=== PATIENT | female | born 1965 | race Caucasian/White ===

== ENCOUNTER 2016-06-23 21:35 | Emergency (ER) | payer OTHER ==
--- NOTE | 2016-06-23 23:28 | DIAGNOSTIC IMAGING REPORT ---
PROCEDURE: XR CHEST 2 VIEW INDICATION: CHEST PAIN TECHNIQUE: PA and lateral views. COMPARISON: Compared to chest x-ray and 10/06/2012. FINDINGS: Allowing for overlying wires and electrodes, lungs are clear. Heart and mediastinum are normal. Thorax is normal. IMPRESSION: 1. Negative chest.
--- NOTE | 2016-06-24 02:24 | ED CLINICAL REPORT ---
Clinical Report - Physicians/Mid Levels [facility] [address] [place] [address] 06/23/2016 21:38 Patient: ROXY JEONG Arrived- By private vehicle. Historian- patient. HISTORY OF PRESENT ILLNESS Chief Complaint: CHEST PAIN. It is described as pressure and sharp and it is described as located in the right chest and left chest area and radiating to the left shoulder. This started past several weeks and is still present (staying the same). It was abrupt in onset and has been constant but is not gone now. Onset during coughing. At its maximum, severity described as severe. When seen in the E.D., severity described as severe. Modifying factors- worsened by cough. Not relieved by anything. No nausea, vomiting, difficulty breathing or diaphoresis. (has had a cough for > 6 months. states it is dry. no other symptoms. reports no hx of eda inhibitors. reports also generalized body aches and fatigue. no headaches, blurry vision, numbness, weakness, or tingling). Similar symptoms previously: None. Recent medical care: Not recently seen/assessed. REVIEW OF SYSTEMS No fever, chills, calf pain or skin rash. All systems otherwise negative, except as recorded above. PAST HISTORY See nurses notes. Denies the following risk factors for DVT/PE - history of DVT and pulmonary embolism, recent surgery, recent NE and congestive heart failure. Denies the following risk factors for DVT/PE - cancer, clotting disorder, estrogens, obesity and immobility. Denies the following risk factors for DVT/PE - advanced in age and vena cava filter. SOCIAL HISTORY Never smoker. No alcohol use or drug use. No recent travel. Is a local resident. FAMILY HISTORY Negative. ADDITIONAL NOTES The nursing notes have been reviewed. PHYSICAL EXAM Vital Signs: 06/23/2016 21:58 BP: 125/75. HR: 100. RR: 14. O2 saturation: 98%. Temp: 98.3 F. Blood pressure normal. Oxygen saturation normal. Appearance: Alert. Oriented X3. No acute distress. Eyes: Pupils equal, round and reactive to light. Eyes normal inspection. ENT: Ears normal. Nose normal. Pharynx normal. Neck: Normal inspection. Neck supple. No JVD. CVS: Normal heart rate and rhythm. Heart sounds normal. Pulses normal. No decreased pulses. Respiratory: No respiratory distress. Breath sounds normal. Chest nontender. No rales, rhonchi or wheezes. Abdomen: Soft and nontender. Bowel sounds normal. No mass. Back: Normal external inspection. Skin: Skin warm and dry. Normal skin color. No rash. Normal skin turgor. Extremities: Extremities exhibit normal ROM. No lower extremity edema. LABS, X-RAYS, AND EKG EKG: Normal sinus rhythm. Rate: 89. Normal P waves. Normal SANDRO. Normal QRS complex. Normal axis. Normal ST and T waves, QT and QTc. No ST elevation. poor R wave progression. Normal sinus. The study has been interpreted contemporaneously. The study has been independently viewed by me. The EKG appears to be a good tracing. Chest X-ray: (PROCEDURE: XR CHEST 2 VIEW INDICATION: CHEST PAIN TECHNIQUE: PA and lateral views. COMPARISON: Compared to chest x-ray and 10/06/2012. FINDINGS: Allowing for overlying wires and electrodes, lungs are clear. Heart and mediastinum are normal. Thorax is normal. IMPRESSION: 1. Negative chest.). Views: PA and lateral. The X-rays were independently viewed by me and interpreted by the radiologist. The X-rays were discussed with the radiologist (via pacs). Laboratory Tests: Urine: (TRACY: 06/24/2016 00:40) ( Mscvd 06/24/2016 00:54) Final results Test Result Flag Units (Reference) URINE NEGATIVE [id number]: (TRACY: 06/24/2016 00:40) ( MsgRcvd 06/24/2016 01:04) Final results Test Result Flag Units (Reference) D-DIMER QUANTITATIVE < 0.27 L ug/mLFEU (0.27-0.52) The primary value of this quantitative assay relates toits negative predictive value (i.e. exclusion) of pulmonaryembolism/deep vein thrombosis/DIC.Elevated levels of d-dimer may also occur with:, age, cancer, inflammation, liver disease,post-op, infection, hematoma, coronary disease, peripheralarteriopathy, bleeding disorders and thrombolytic treatment.Results should be correlated with other clinical andradiological data.Testing Methodology: Latex Immunoassay Urine Drug Screen: (TRACY: 06/24/2016 00:40) ( MsgRcvd 06/24/2016 01:12) Final results Test Result Flag Units (Reference) AMPHETAMINE/METHAMPHETAMINE NEGATIVE (NEGATIVE) BARBITURATE NEGATIVE (NEGATIVE) BENZODIAZEPINE NEGATIVE (NEGATIVE) CANNABINOID NEGATIVE (NEGATIVE) COCAINE NEGATIVE (NEGATIVE) ECSTASY POSITIVE H (NEGATIVE) METHADONE NEGATIVE (NEGATIVE) OPIATE POSITIVE H (NEGATIVE) The urine drug screen is a qualitative screening test fordrug overdose and abuse. All screen results should beconsidered as presumptive.Drugs screened for are as follows:BenzodiazepinesCocaineAmphetamines/MetamphetaminesTHC (Tetrahydrocannabinol)OpiatesBarbituratesEcstasyMethadonePositive results are unconfirmed. For confirmation, notifythe lab for the specimen to be sent to the reference lab.All confirmations must be performed by a differentmethodology.The ingestion of natural herbal and plant productscontaining Ephedra/Ephedra metabolites can produce in urineone or more substances capable of cross reacting withamphetamine/methamphetamine immunoassays. These testsprovide a preliminary result only. A more specificalternative chemical method must be used to obtain aconfirmed analytical result. CBC w Diff: (TRACY: 06/23/2016 22:40) ( MsgRcvd 06/23/2016 23:06) Final results Test Result Flag Units (Reference) WHITE BLOOD COUNT 6.5 K/uL (4.5-11.5) RED BLOOD COUNT 5.48 H M/uL (4.00-5.20) HEMOGLOBIN 11.5 L gm/dL (12.0-16.0) HEMATOCRIT 36.6 % (36.0-46.0) MEAN CELL VOLUME 67 L fL (80-100) MEAN CORPUSCULAR HGB 21 L pg (26-34) MEAN CORPUSCULAR HGB CONC 31 g/dL (31-37) RED CELL DISTRIBUTION WIDTH 13.9 % (11.6-14.8) PLATELET COUNT 200 K/uL (150-400) LYMPH % 26.1 % (25-40) MONO % 3.2 % (3-14) GRANULOCYTE % 70.7 (53-90) TSH: (TRACY: 06/23/2016 23:30) ( [facility] [place] 06/24/2016 00:15) Final results Test Result Flag Units (Reference) THYROID STIMULATING HORMONE 1.187 uIU/mL (0.34-3.74) Troponin-I: (TRACY: 06/23/2016 23:30) ( [facility] [place] 06/24/2016 00:15) Final results Test Result Flag Units (Reference) TROPONIN I <0.05 ng/mL (0.00-1.5) TROPONIN REFERENCE RANGE:<0.1 NEGATIVE0.1-1.5 INDETERMINANT>1.5 POSITIVE CMP: (TRACY: 06/23/2016 23:30) ( [facility] [place] 06/24/2016 00:03) Final results Test Result Flag Units (Reference) GLUCOSE 87 mg/dL (70-110) BUN 12 mg/dL (7-18) CREATININE 0.8 mg/dL (0.6-1.3) Estimated GFR >60 mL/min Estimated GFR- >60 mL/min Note: Persistent reduction over 3 months in eGFR<60 mL/min/1.73 m2 defines CKD. Patients with eGFR values>=60 mL/min/1.73 m2 may also have CKD if evidence ofpersistent proteinuria. Additional information may be foundat www.[email or web address].org. SODIUM 138 mmol/L (136-145) POTASSIUM 3.5 mmol/L (3.5-5.1) CHLORIDE 102 mmol/L (98-107) CARBON DIOXIDE 25 mmol/L (21-32) CALCIUM 8.4 L mg/dL (8.5-10.1) TOTAL PROTEIN 7.0 g/dL (6.4-8.2) ALBUMIN 3.7 g/dL (3.3-5.0) BILIRUBIN, TOTAL 0.3 mg/dL (0.0-1.0) ALKALINE PHOSPHATASE 59 U/L (46-116) AST (SGOT) 18 U/L (15-37) ALT (SGPT) 26 U/L (12-78) . PROGRESS AND PROCEDURES Course of Care: The patient is a pleasant 50-year-old female presenting for evaluation of left-sided chest pain. At this time differential diagnosis includes pneumonia, pulmonary embolus, acute myocardial infarction. Chest pain appears to be atypical in nature. Patient appears nontoxic. I had explained to patient workup here in the emergency department and plan of care. Patient is agreeable to the treatment plan. workup does not show any acute abnormalities. Troponin is negative. D-dimer is negative. EKG does not show any acute amount is. Chest x-ray does not show any signs of pneumothorax, pneumonia, or concerning findings such as widening mediastinum or apical capping. Because of the patient's negative d-dimer, did not fill patient has thoracic aorta dissection or other more sinister causes for the chest pain. chest pain appears to be atypical in nature. With negative workup, feel patient is extremely low risk for having adverse outcomes and can follow up with the scheduledplanned digital associate media director evaluationas an outpatient. I discussed the patient workup, diagnosis, home care, follow-up, and return precautions. All questions answered. The patient expressed understanding of these instructions and was agreeable to them. Disposition: Discharged. Condition: good. CLINICAL IMPRESSION 06/24/2016 00:00 BP: 104/66. HR: 83. RR: 12. O2 saturation: 97%. Pain level now: 9/10. Chronic cough Blood pressure normal. Oxygen saturation normal. Atypical chest pain .12 lead EKG performed. (acute bilateral). INSTRUCTIONS Warnings: GENERAL WARNINGS: Return or contact your physician immediately if your condition worsens or changes unexpectedly, if not improving as expected, or if other problems arise. SPECIFICALLY, return if you develop chest, neck, jaw, shoulder, arm, or back pain, difficulty breathing, a fluttering sensation in your chest, lightheadedness, fainting, excessive fatigue, or sudden sweating. Your Current Medications: CONTINUE TAKING THE FOLLOWING MEDICATIONS: Ambien Oral : 10 mg, prn. LORazepam Oral : 1.5 mg daily. Methocarbamol Oral. NexIUM Oral : 80 mg daily. Ranitidine HCl Oral : at bedtime. Tessalon Perles Oral. TraZODone HCl Oral : 350 mg at bedtime. Tussionex Oral. Follow-up: Return to the emergency department as needed. Follow up with your doctor in three days. Reason for referral: recheck today's concerns. Summary of care provided to patient via paper. Follow up with doctor Your digital associate media director or covering doctor in three days. Reason for referral: recheck today's concerns . Summary of care provided to patient via paper. Screening today revealed the patient's blood pressure to be in the normal range. The patient should follow up with a primary care provider for blood pressure management. Understanding of the discharge instructions verbalized by patient. (Electronically signed by Mati Garrison Dr. 06/27/2016 12:11)
--- NOTE | 2016-06-24 02:24 | ED NURSING NOTES ---
Clinical Report - Nurses [place] [address] [place] [address] 06/23/2016 21:38 Patient: ROXY JEONG TRIAGE Triage time 21:45 Jun 23 2016. Acuity: LEVEL 2. Chief Complaint: CHEST PAIN. 21:58 06/23/16. Alert. No acute distress. SEPSIS SCREEN: Sepsis Screen. Negative (no infection suspected/documented). OZ COMA SCORE: Oz Coma Scale: 15- eyes open spontaneously (4); best verbal response- oriented x 4 (5); best motor response- obeys commands (6). --21:58 Bambi Lambert 21:58 06/23/16. BP: 125/75. HR: 100. RR: 14. O2 saturation: 98%. Temp: 98.3 F. Pain level now 9/10. --21:58 Bambi Lambert. Weight: 76.2 kg stated. Height/Length: 66 inches Per Patient. BMI: 27.1. --21:58 Bambi Lambert. Medications TraZODone HCl Oral 350 mg, at bedtime. --21:53 Bambi Lambert Ambien Oral 10 mg, as needed. --21:53 Bambi Lambert LORazepam Oral 1.5 mg, daily. --21:54 Bambi Lambert NexIUM Oral 80 mg, daily. --21:54 Bambi Lambert Ranitidine HCl Oral, at bedtime. --21:54 Bambi Lambert Tessalon Perles Oral. --21:54 Bambi Lambert Tussionex Oral. --21:55 Bambi Lambert Methocarbamol Oral. --21:55 Bambi Lambert. Medication/allergy information source: the patient. --21:58 Bambi Lambert. Allergies Penicillin. --21:55 Bambi Lambert Dilaudid. --21:56 Bambi Lambert Effexor. --21:56 Bambi Lambert Benadryl. (restless legs, chattering) --21:56 Bambi Lambert Tetracycline. --21:56 Bambi Lambert. History Arrived by private vehicle. Historian: patient. Accompanied by spouse. Primary physician (Marga). Onset. (Past 2-3 days). ( Pt reports "rib" pain on the left lower side. States that it is worsened by breathing and moving. Pt reports that she has a chronic cough that has gotten worse recently. Reports that she has been working with child life specialist for sinus infections. Pt reports that she is going to see a electromechanical equipment assembler. Has had rapid weight gain.). She has had a subjective fever, difficulty breathing, nausea, vomiting and a cough. PAST MEDICAL HX: No history of diabetes mellitus, hypertension, heart disease or lung disease. Immunizations: up-to-date. SOCIAL HX: Never smoker. No alcohol use or drug use. FALL RISK ASSESSMENT: Fall risk assessment completed. No fall risk identified. NUTRITIONAL RISK ASSESSMENT: The nutritional risk assessment revealed no deficiencies. FUNCTIONAL ASSESSMENT: Functional assessment: no impairments noted. LEARNING NEEDS ASSESSMENT: The learning needs assessment revealed no barriers. SKIN INTEGRITY ASSESSMENT: Skin integrity risk assessment completed. No skin integrity risk identified. --21:58 Bambi Lambert. PROBLEMS: Emeterio Anomaly. Anemia. Tricuspid valve regurgitation. Chronic pain. Migraine Headache. Chest Pain. TIA - Transient Ischemic Attack. Calification R arm. Bone growths. Fibromyalgia. Thalassemia. --21:56 Bambi Lambert Gastroesophageal Reflux Disease. --22:09 Bambi Lambert. ADDITIONAL SURGERIES: Back Surgery. Bone tumor removal base of skull. L foot. L wrist. R ankle repair. R foot. R toe fusion. Sinus Surgery. --21:56 Bambi Lambert. Assessment The patient states feels the same. --21:58 Bambi Lambert. Interventions ID band on patient. --21:58 Bambi Lambert. PHYSICAL ASSESSMENT 21:58 06/23/16. Ambulatory to room. Patient gowned. GENERAL / NEURO / PSYCH: Alert. Oriented X 4. Appears in no acute distress. HEENT: Mucous membranes are pink. RESPIRATORY: Respirations not labored. Chest nontender. CVS: Normal sinus rhythm noted. Pulses within normal limits. Capillary refill less than 2 seconds. GI / : Abdomen soft and nontender. EXTREMITIES: No lower extremity edema. SKIN: Skin is warm and dry. Normal skin turgor. Skin is non-tender. --21:58 Bambi Lambert. NURSING PROGRESS NOTES 21:59 06/23/16. The plan of care for this patient has been created. radiation monitor, pulse oximeter and NIBP monitor placed on patient; monitor alarms on. Patient gowned. Head of bed elevated. Reassurance given to the patient. Two patient identifiers checked. Call light placed in reach. Side rails up x 1. Bed placed in lowest position. Brakes of bed on. Patient ready for evaluation- chart flagged and ED physician and PA notified. --21:59 Bambi Lambert 22:06 06/23/2016 One (1) unsuccessful IV access attempt including the right wrist. Applied pressure dressing. --22:06 Bambi Lambert EKG time: (2210 PM). EKG was ordered, performed by a tech and shown to the ED physician. --22:13 Nicole Shirley 22:34 06/23/2016 Site #1 started via IV in the right upper arm with an 22g angiocath, with aseptic technique; one attempt. Saline lock flushed with 10 mL saline (only able to collect a pediatric pink tube). --22:49 Sesar López, RVernon 23:00 06/23/16. BP: 110/65 (regular adult cuff) taken on the left arm, via an automated monitor, while lying. HR: 85. RR: 12. O2 saturation: 97%. Temp: 98 F (oral). Pain level now: 02/13. --23:19 Kia Carpenter, R.N. radiation monitor, pulse oximeter and NIBP monitor placed on patient. Patient gowned. Reassurance given. The patient is resting quietly and has had no adverse reaction. Overall patient status is improved- she states feels the same. HEENT: The patient reports headache. RESPIRATORY: No respiratory distress present. No decreased breath sounds or crackles. CVS: The patient reports chest pain. SKIN: Skin color normal. Call light placed in reach. Side rails up x 2. Bed placed in lowest position. --23:19 Kia Carpenter R.N. 00:09 06/24/2016 Toradol IVP 30 mg given over 30 second(s) via site #1. Allergies verified and confirmed 5 rights. IV patency established. IV site checked: no pain, redness, or swelling. IV flushed thoroughly pre- and post-medication administration. IVP given by RN. --00:09 Kia Carpenter R.N. 00:43 06/24/2016 Toradol IVP Response: no adverse reaction pain is worsening. Symptoms are the same. ED physician notified. --00:44 Kia Carpenter R.N. 00:50 06/24/2016 Morphine IVP 4 mg given over 1 minute(s) via site #1. Sedative warning given to the patient and patient's family. IV patency established. IV site checked: no pain, redness, or swelling. IV flushed thoroughly pre- and post-medication administration. IVP given by RN. --00:51 Kia Carpenter R.N. 00:00 06/24/16. BP: 104/66. HR: 83. RR: 12. O2 saturation: 97% on room air. Pain level now: 01/14. --00:53 Kia Carpenter R.N. Cardiac rhythm: normal sinus rhythm. radiation monitor, pulse oximeter and NIBP monitor placed on patient. Reassurance given. Reassessment after intervention. She has had no adverse reaction. GENERAL / NEURO / PSYCH: The patient reports anxiety. CVS: The patient reports left-sided and central chest pain that is described as sharp and radiating to the left arm. Two patient identifiers checked. Call light placed in reach. Side rails up x 2. Bed placed in lowest position. Brakes of bed on. --00:53 Kia Carpenter R.N. 01:00 06/24/16. BP: 128/77 (regular adult cuff) taken on the left arm, via an automated monitor, while lying. HR: 79. RR: 13 (regular and unlabored). O2 saturation: 96%. Temp: 97.7 F (oral). Pain level now: 12/14. --01:56 Kia Carpenter R.N. late entry - 0100 AM. Cardiac rhythm: normal sinus rhythm. radiation monitor, pulse oximeter and NIBP monitor placed on patient. Reassurance given. Reassessment after medication administered. She is calm and has had no adverse reaction. Overall patient status is the same- she states feels better. ( pt states that her pain has gotten a "bit better" left side breast area radiating to shoulder blade area. Pt does state feeling nausea/ H/A). HEENT: The patient reports headache. CVS: Normal sinus rhythm noted. GI / : The patient reports nausea. Call light placed in reach. Side rails up x 1. Bed placed in lowest position. Brakes of bed on. --01:56 Kia Carpenter R.N. 01:56 06/24/2016 Morphine IVP Response: no adverse reaction pain is improving. Symptoms have improved the patient feels better. --01:56 Kia Carpenter R.N. 02:22. The patient is calm and resting quietly. RESPIRATORY: No respiratory distress. SKIN: Skin is warm and dry. Skin color within normal limits. --02:28 Sesar Chowdhury R.N. DISPOSITION / DISCHARGE 02:21 06/24/2016 Site #1 removed upon discharge. Catheter intact. Bandage applied. --02:27 Sesar Chowdhury R.N. Departure time: 02:26. Condition at departure: stable. No learning barriers present. Discharge instructions provided and reviewed with the patient and spouse. Patient and spouse verbalized understanding. Written instructions provided in Bengali. The patient was discharged home and accompanied by spouse. She left the Emergency Department ambulatory and via private vehicle. Spouse driving. FALL RISK ASSESSMENT: Fall risk assessment completed. No fall risk identified. --02:27 Sesar Chowdhury R.N. 02:12 06/24/16. BP: 130/72. HR: 82. RR: 16. O2 saturation: 97%. Pain level now: 12/14. --02:27 Sesar Chowdhury R.N. Locked/Released at 06/24/2016 2:56 by Sesar Chowdhury R.N.
--- NOTE | 2016-06-24 02:24 | ED CLINICAL REPORT ---
Clinical Report - Physicians/Mid Levels Formerly [facility] [address] [place] [address] 06/23/2016 21:38 Patient: ROXY JEONG Arrived- By private vehicle. Historian- patient. HISTORY OF PRESENT ILLNESS Chief Complaint: CHEST PAIN. It is described as pressure and sharp and it is described as located in the right chest and left chest area and radiating to the left shoulder. This started past several weeks and is still present (staying the same). It was abrupt in onset and has been constant but is not gone now. Onset during coughing. At its maximum, severity described as severe. When seen in the E.D., severity described as severe. Modifying factors- worsened by cough. Not relieved by anything. No nausea, vomiting, difficulty breathing or diaphoresis. (has had a cough for > 6 months. states it is dry. no other symptoms. reports no hx of eda inhibitors. reports also generalized body aches and fatigue. no headaches, blurry vision, numbness, weakness, or tingling). Similar symptoms previously: None. Recent medical care: Not recently seen/assessed. REVIEW OF SYSTEMS No fever, chills, calf pain or skin rash. All systems otherwise negative, except as recorded above. PAST HISTORY See nurses notes. Denies the following risk factors for DVT/PE - history of DVT and pulmonary embolism, recent surgery, recent IA and congestive heart failure. Denies the following risk factors for DVT/PE - cancer, clotting disorder, estrogens, obesity and immobility. Denies the following risk factors for DVT/PE - advanced in age and vena cava filter. SOCIAL HISTORY Never smoker. No alcohol use or drug use. No recent travel. Is a local resident. FAMILY HISTORY Negative. ADDITIONAL NOTES The nursing notes have been reviewed. PHYSICAL EXAM Vital Signs: 06/23/2016 21:58 BP: 125/75. HR: 100. RR: 14. O2 saturation: 98%. Temp: 98.3 F. Blood pressure normal. Oxygen saturation normal. Appearance: Alert. Oriented X3. No acute distress. Eyes: Pupils equal, round and reactive to light. Eyes normal inspection. ENT: Ears normal. Nose normal. Pharynx normal. Neck: Normal inspection. Neck supple. No JVD. CVS: Normal heart rate and rhythm. Heart sounds normal. Pulses normal. No decreased pulses. Respiratory: No respiratory distress. Breath sounds normal. Chest nontender. No rales, rhonchi or wheezes. Abdomen: Soft and nontender. Bowel sounds normal. No mass. Back: Normal external inspection. Skin: Skin warm and dry. Normal skin color. No rash. Normal skin turgor. Extremities: Extremities exhibit normal ROM. No lower extremity edema. LABS, X-RAYS, AND EKG EKG: Normal sinus rhythm. Rate: 89. Normal P waves. Normal SANDRO. Normal QRS complex. Normal axis. Normal ST and T waves, QT and QTc. No ST elevation. poor R wave progression. Normal sinus. The study has been interpreted contemporaneously. The study has been independently viewed by me. The EKG appears to be a good tracing. Chest X-ray: (PROCEDURE: XR CHEST 2 VIEW INDICATION: CHEST PAIN TECHNIQUE: PA and lateral views. COMPARISON: Compared to chest x-ray and 10/06/2012. FINDINGS: Allowing for overlying wires and electrodes, lungs are clear. Heart and mediastinum are normal. Thorax is normal. IMPRESSION: 1. Negative chest.). Views: PA and lateral. The X-rays were independently viewed by me and interpreted by the radiologist. The X-rays were discussed with the radiologist (via pacs). Laboratory Tests: Urine: (TRACY: 06/24/2016 00:40) ( Mscvd 06/24/2016 00:54) Final results Test Result Flag Units (Reference) URINE NEGATIVE [id number]: (TRACY: 06/24/2016 00:40) ( MsgRcvd 06/24/2016 01:04) Final results Test Result Flag Units (Reference) D-DIMER QUANTITATIVE < 0.27 L ug/mLFEU (0.27-0.52) The primary value of this quantitative assay relates toits negative predictive value (i.e. exclusion) of pulmonaryembolism/deep vein thrombosis/DIC.Elevated levels of d-dimer may also occur with:, age, cancer, inflammation, liver disease,post-op, infection, hematoma, coronary disease, peripheralarteriopathy, bleeding disorders and thrombolytic treatment.Results should be correlated with other clinical andradiological data.Testing Methodology: Latex Immunoassay Urine Drug Screen: (TRACY: 06/24/2016 00:40) ( MsgRcvd 06/24/2016 01:12) Final results Test Result Flag Units (Reference) AMPHETAMINE/METHAMPHETAMINE NEGATIVE (NEGATIVE) BARBITURATE NEGATIVE (NEGATIVE) BENZODIAZEPINE NEGATIVE (NEGATIVE) CANNABINOID NEGATIVE (NEGATIVE) COCAINE NEGATIVE (NEGATIVE) ECSTASY POSITIVE H (NEGATIVE) METHADONE NEGATIVE (NEGATIVE) OPIATE POSITIVE H (NEGATIVE) The urine drug screen is a qualitative screening test fordrug overdose and abuse. All screen results should beconsidered as presumptive.Drugs screened for are as follows:BenzodiazepinesCocaineAmphetamines/MetamphetaminesTHC (Tetrahydrocannabinol)OpiatesBarbituratesEcstasyMethadonePositive results are unconfirmed. For confirmation, notifythe lab for the specimen to be sent to the reference lab.All confirmations must be performed by a differentmethodology.The ingestion of natural herbal and plant productscontaining Ephedra/Ephedra metabolites can produce in urineone or more substances capable of cross reacting withamphetamine/methamphetamine immunoassays. These testsprovide a preliminary result only. A more specificalternative chemical method must be used to obtain aconfirmed analytical result. CBC w Diff: (TRACY: 06/23/2016 22:40) ( MsgRcvd 06/23/2016 23:06) Final results Test Result Flag Units (Reference) WHITE BLOOD COUNT 6.5 K/uL (4.5-11.5) RED BLOOD COUNT 5.48 H M/uL (4.00-5.20) HEMOGLOBIN 11.5 L gm/dL (12.0-16.0) HEMATOCRIT 36.6 % (36.0-46.0) MEAN CELL VOLUME 67 L fL (80-100) MEAN CORPUSCULAR HGB 21 L pg (26-34) MEAN CORPUSCULAR HGB CONC 31 g/dL (31-37) RED CELL DISTRIBUTION WIDTH 13.9 % (11.6-14.8) PLATELET COUNT 200 K/uL (150-400) LYMPH % 26.1 % (25-40) MONO % 3.2 % (3-14) GRANULOCYTE % 70.7 (53-90) TSH: (TRACY: 06/23/2016 23:30) ( [facility] 06/24/2016 00:15) Final results Test Result Flag Units (Reference) THYROID STIMULATING HORMONE 1.187 uIU/mL (0.34-3.74) Troponin-I: (TRACY: 06/23/2016 23:30) ( [facility] 06/24/2016 00:15) Final results Test Result Flag Units (Reference) TROPONIN I <0.05 ng/mL (0.00-1.5) TROPONIN REFERENCE RANGE:<0.1 NEGATIVE0.1-1.5 INDETERMINANT>1.5 POSITIVE CMP: (TRACY: 06/23/2016 23:30) ( [facility] 06/24/2016 00:03) Final results Test Result Flag Units (Reference) GLUCOSE 87 mg/dL (70-110) BUN 12 mg/dL (7-18) CREATININE 0.8 mg/dL (0.6-1.3) Estimated GFR >60 mL/min Estimated GFR- >60 mL/min Note: Persistent reduction over 3 months in eGFR<60 mL/min/1.73 m2 defines CKD. Patients with eGFR values>=60 mL/min/1.73 m2 may also have CKD if evidence ofpersistent proteinuria. Additional information may be foundat www.kidney.org. SODIUM 138 mmol/L (136-145) POTASSIUM 3.5 mmol/L (3.5-5.1) CHLORIDE 102 mmol/L (98-107) CARBON DIOXIDE 25 mmol/L (21-32) CALCIUM 8.4 L mg/dL (8.5-10.1) TOTAL PROTEIN 7.0 g/dL (6.4-8.2) ALBUMIN 3.7 g/dL (3.3-5.0) BILIRUBIN, TOTAL 0.3 mg/dL (0.0-1.0) ALKALINE PHOSPHATASE 59 U/L (46-116) AST (SGOT) 18 U/L (15-37) ALT (SGPT) 26 U/L (12-78) . PROGRESS AND PROCEDURES Course of Care: The patient is a pleasant 50-year-old female presenting for evaluation of left-sided chest pain. At this time differential diagnosis includes pneumonia, pulmonary embolus, acute myocardial infarction. Chest pain appears to be atypical in nature. Patient appears nontoxic. I had explained to patient workup here in the emergency department and plan of care. Patient is agreeable to the treatment plan. workup does not show any acute abnormalities. Troponin is negative. D-dimer is negative. EKG does not show any acute amount is. Chest x-ray does not show any signs of pneumothorax, pneumonia, or concerning findings such as widening mediastinum or apical capping. Because of the patient's negative d-dimer, did not fill patient has thoracic aorta dissection or other more sinister causes for the chest pain. chest pain appears to be atypical in nature. With negative workup, feel patient is extremely low risk for having adverse outcomes and can follow up with the scheduledplanned route salesman evaluationas an outpatient. I discussed the patient workup, diagnosis, home care, follow-up, and return precautions. All questions answered. The patient expressed understanding of these instructions and was agreeable to them. Disposition: Discharged. Condition: good. CLINICAL IMPRESSION 06/24/2016 00:00 BP: 104/66. HR: 83. RR: 12. O2 saturation: 97%. Pain level now: 9/10. Chronic cough Blood pressure normal. Oxygen saturation normal. Atypical chest pain .12 lead EKG performed. (acute bilateral). INSTRUCTIONS Warnings: GENERAL WARNINGS: Return or contact your physician immediately if your condition worsens or changes unexpectedly, if not improving as expected, or if other problems arise. SPECIFICALLY, return if you develop chest, neck, jaw, shoulder, arm, or back pain, difficulty breathing, a fluttering sensation in your chest, lightheadedness, fainting, excessive fatigue, or sudden sweating. Your Current Medications: CONTINUE TAKING THE FOLLOWING MEDICATIONS: Ambien Oral : 10 mg, prn. LORazepam Oral : 1.5 mg daily. Methocarbamol Oral. NexIUM Oral : 80 mg daily. Ranitidine HCl Oral : at bedtime. Tessalon Perles Oral. TraZODone HCl Oral : 350 mg at bedtime. Tussionex Oral. Follow-up: Return to the emergency department as needed. Follow up with your doctor in three days. Reason for referral: recheck today's concerns. Summary of care provided to patient via paper. Follow up with doctor Your route salesman or covering doctor in three days. Reason for referral: recheck today's concerns . Summary of care provided to patient via paper. Screening today revealed the patient's blood pressure to be in the normal range. The patient should follow up with a primary care provider for blood pressure management. Understanding of the discharge instructions verbalized by patient. (Electronically signed by Mati Garrison Dr. 06/27/2016 12:11)
--- NOTE | 2016-06-24 02:24 | ED NURSING NOTES ---
Clinical Report - Nurses [place] [address] [place] [address] 06/23/2016 21:38 Patient: ROXY JEONG TRIAGE Triage time 21:45 Jun 23 2016. Acuity: LEVEL 2. Chief Complaint: CHEST PAIN. 21:58 06/23/16. Alert. No acute distress. SEPSIS SCREEN: Sepsis Screen. Negative (no infection suspected/documented). OZ COMA SCORE: Oz Coma Scale: 15- eyes open spontaneously (4); best verbal response- oriented x 4 (5); best motor response- obeys commands (6). --21:58 Bambi Lambert 21:58 06/23/16. BP: 125/75. HR: 100. RR: 14. O2 saturation: 98%. Temp: 98.3 F. Pain level now 9/10. --21:58 Bambi Lambert. Weight: 76.2 kg stated. Height/Length: 66 inches Per Patient. BMI: 27.1. --21:58 Bambi Lambert. Medications TraZODone HCl Oral 350 mg, at bedtime. --21:53 Bambi Lambert Ambien Oral 10 mg, as needed. --21:53 Bambi Lambert LORazepam Oral 1.5 mg, daily. --21:54 Bambi Lambert NexIUM Oral 80 mg, daily. --21:54 Bambi Lambert Ranitidine HCl Oral, at bedtime. --21:54 Bambi Lambert Tessalon Perles Oral. --21:54 Bambi Lambert Tussionex Oral. --21:55 Bambi Lambert Methocarbamol Oral. --21:55 Bambi Lambert. Medication/allergy information source: the patient. --21:58 Bambi Lambert. Allergies Penicillin. --21:55 Bambi Lambert Dilaudid. --21:56 Bambi Lambert Effexor. --21:56 Bambi Lambert Benadryl. (restless legs, chattering) --21:56 Bambi Lambert Tetracycline. --21:56 Bambi Lambert. History Arrived by private vehicle. Historian: patient. Accompanied by spouse. Primary physician (Marga). Onset. (Past 2-3 days). ( Pt reports "rib" pain on the left lower side. States that it is worsened by breathing and moving. Pt reports that she has a chronic cough that has gotten worse recently. Reports that she has been working with community engagement specialist for sinus infections. Pt reports that she is going to see a roustabout head. Has had rapid weight gain.). She has had a subjective fever, difficulty breathing, nausea, vomiting and a cough. PAST MEDICAL HX: No history of diabetes mellitus, hypertension, heart disease or lung disease. Immunizations: up-to-date. SOCIAL HX: Never smoker. No alcohol use or drug use. FALL RISK ASSESSMENT: Fall risk assessment completed. No fall risk identified. NUTRITIONAL RISK ASSESSMENT: The nutritional risk assessment revealed no deficiencies. FUNCTIONAL ASSESSMENT: Functional assessment: no impairments noted. LEARNING NEEDS ASSESSMENT: The learning needs assessment revealed no barriers. SKIN INTEGRITY ASSESSMENT: Skin integrity risk assessment completed. No skin integrity risk identified. --21:58 Bambi Lambert. PROBLEMS: Emeterio Anomaly. Anemia. Tricuspid valve regurgitation. Chronic pain. Migraine Headache. Chest Pain. TIA - Transient Ischemic Attack. Calification R arm. Bone growths. Fibromyalgia. Thalassemia. --21:56 Bambi Lambert Gastroesophageal Reflux Disease. --22:09 Bambi Lambert. ADDITIONAL SURGERIES: Back Surgery. Bone tumor removal base of skull. L foot. L wrist. R ankle repair. R foot. R toe fusion. Sinus Surgery. --21:56 Bambi Lambert. Assessment The patient states feels the same. --21:58 Bambi Lambert. Interventions ID band on patient. --21:58 Bambi Lambert. PHYSICAL ASSESSMENT 21:58 06/23/16. Ambulatory to room. Patient gowned. GENERAL / NEURO / PSYCH: Alert. Oriented X 4. Appears in no acute distress. HEENT: Mucous membranes are pink. RESPIRATORY: Respirations not labored. Chest nontender. CVS: Normal sinus rhythm noted. Pulses within normal limits. Capillary refill less than 2 seconds. GI / : Abdomen soft and nontender. EXTREMITIES: No lower extremity edema. SKIN: Skin is warm and dry. Normal skin turgor. Skin is non-tender. --21:58 Bambi Lambert. NURSING PROGRESS NOTES 21:59 06/23/16. The plan of care for this patient has been created. ground support equipment fitter, pulse oximeter and NIBP monitor placed on patient; monitor alarms on. Patient gowned. Head of bed elevated. Reassurance given to the patient. Two patient identifiers checked. Call light placed in reach. Side rails up x 1. Bed placed in lowest position. Brakes of bed on. Patient ready for evaluation- chart flagged and ED physician and PA notified. --21:59 Bambi Lambert 22:06 06/23/2016 One (1) unsuccessful IV access attempt including the right wrist. Applied pressure dressing. --22:06 Bambi Lambert EKG time: (2210 PM). EKG was ordered, performed by a tech and shown to the ED physician. --22:13 Nicole Shirley 22:34 06/23/2016 Site #1 started via IV in the right upper arm with an 22g angiocath, with aseptic technique; one attempt. Saline lock flushed with 10 mL saline (only able to collect a pediatric pink tube). --22:49 Sesar López, RVernon 23:00 06/23/16. BP: 110/65 (regular adult cuff) taken on the left arm, via an automated monitor, while lying. HR: 85. RR: 12. O2 saturation: 97%. Temp: 98 F (oral). Pain level now: 02/13. --23:19 Kia Carpenter, R.N. ground support equipment fitter, pulse oximeter and NIBP monitor placed on patient. Patient gowned. Reassurance given. The patient is resting quietly and has had no adverse reaction. Overall patient status is improved- she states feels the same. HEENT: The patient reports headache. RESPIRATORY: No respiratory distress present. No decreased breath sounds or crackles. CVS: The patient reports chest pain. SKIN: Skin color normal. Call light placed in reach. Side rails up x 2. Bed placed in lowest position. --23:19 Kia Carpenter R.N. 00:09 06/24/2016 Toradol IVP 30 mg given over 30 second(s) via site #1. Allergies verified and confirmed 5 rights. IV patency established. IV site checked: no pain, redness, or swelling. IV flushed thoroughly pre- and post-medication administration. IVP given by RN. --00:09 Kia Carpenter R.N. 00:43 06/24/2016 Toradol IVP Response: no adverse reaction pain is worsening. Symptoms are the same. ED physician notified. --00:44 Kia Carpenter R.N. 00:50 06/24/2016 Morphine IVP 4 mg given over 1 minute(s) via site #1. Sedative warning given to the patient and patient's family. IV patency established. IV site checked: no pain, redness, or swelling. IV flushed thoroughly pre- and post-medication administration. IVP given by RN. --00:51 Kia Carpenter R.N. 00:00 06/24/16. BP: 104/66. HR: 83. RR: 12. O2 saturation: 97% on room air. Pain level now: 01/14. --00:53 Kia Carpenter R.N. Cardiac rhythm: normal sinus rhythm. ground support equipment fitter, pulse oximeter and NIBP monitor placed on patient. Reassurance given. Reassessment after intervention. She has had no adverse reaction. GENERAL / NEURO / PSYCH: The patient reports anxiety. CVS: The patient reports left-sided and central chest pain that is described as sharp and radiating to the left arm. Two patient identifiers checked. Call light placed in reach. Side rails up x 2. Bed placed in lowest position. Brakes of bed on. --00:53 Kia Carpenter R.N. 01:00 06/24/16. BP: 128/77 (regular adult cuff) taken on the left arm, via an automated monitor, while lying. HR: 79. RR: 13 (regular and unlabored). O2 saturation: 96%. Temp: 97.7 F (oral). Pain level now: 12/14. --01:56 Kia Carpenter R.N. late entry - 0100 AM. Cardiac rhythm: normal sinus rhythm. ground support equipment fitter, pulse oximeter and NIBP monitor placed on patient. Reassurance given. Reassessment after medication administered. She is calm and has had no adverse reaction. Overall patient status is the same- she states feels better. ( pt states that her pain has gotten a "bit better" left side breast area radiating to shoulder blade area. Pt does state feeling nausea/ H/A). HEENT: The patient reports headache. CVS: Normal sinus rhythm noted. GI / : The patient reports nausea. Call light placed in reach. Side rails up x 1. Bed placed in lowest position. Brakes of bed on. --01:56 Kia Carpenter R.N. 01:56 06/24/2016 Morphine IVP Response: no adverse reaction pain is improving. Symptoms have improved the patient feels better. --01:56 Kia Carpenter R.N. 02:22. The patient is calm and resting quietly. RESPIRATORY: No respiratory distress. SKIN: Skin is warm and dry. Skin color within normal limits. --02:28 Sesar Chowdhury R.N. DISPOSITION / DISCHARGE 02:21 06/24/2016 Site #1 removed upon discharge. Catheter intact. Bandage applied. --02:27 Sesar Chowdhury R.N. Departure time: 02:26. Condition at departure: stable. No learning barriers present. Discharge instructions provided and reviewed with the patient and spouse. Patient and spouse verbalized understanding. Written instructions provided in Yoruba. The patient was discharged home and accompanied by spouse. She left the Emergency Department ambulatory and via private vehicle. Spouse driving. FALL RISK ASSESSMENT: Fall risk assessment completed. No fall risk identified. --02:27 Sesar Chowdhury R.N. 02:12 06/24/16. BP: 130/72. HR: 82. RR: 16. O2 saturation: 97%. Pain level now: 12/14. --02:27 Sesar Chowdhury R.N. Locked/Released at 06/24/2016 2:56 by Sesar Chowdhury R.N.
--- NOTE | 2016-06-24 02:25 | ED ORDER SUMMARY ---
..... Patient: ROXY JEONG OrderSheet [facility] VisitID: [id number] [place] [address] 50y, F Registration Date/Time: 06/23/2016 ORDER SHEET Weight: 76.2 kg (stated) Allergies: Penicillin, Dilaudid, Effexor, Benadryl, Tetracycline GENERAL ORDERS: EKG - ER Stat (21:49 06/23/2016 ASchmuck per protocol) (Ack 22:01 Zenpriseerty ER Natural Resource Specialist) (22:12 Keturahekimana) Chest 2V Urgent (21:57 06/23/2016 Fareed Downing) (Ack 22:00 Zenpriseerty ER Natural Resource Specialist) (22:55 MCamaryuri) Real Property Appraiser (Continuous) (CP) (21:58 06/23/2016 Fareed Downing) (22:06 ASchmmoose) CMP Urgent (21:58 06/23/2016 Fareed Downing) (Ack 22:00 Zenpriseerty ER Natural Resource Specialist) (23:10 EHassan R.N.) CBC w Diff Urgent (21:58 06/23/2016 Fareed Downing) (Ack 22:00 Zenpriseerty ER Natural Resource Specialist) (23:10 EHassan R.N.) Urine Urgent (21:58 06/23/2016 Fareed Downing) (Ack 22:00 Zenpriseerty ER Natural Resource Specialist) (0:43 EHassan R.N.) Pulse oximeter (21:58 06/23/2016 Fareed Downing) (22:06 ASchmuck) Troponin-I Urgent (21:58 06/23/2016 Fareed Downing) (Ack 22:00 Zenpriseerty ER Natural Resource Specialist) (23:10 EHassan R.N.) Urine Drug Screen Urgent (21:58 06/23/2016 Fareed Downing) (Ack 22:00 Zenpriseerty ER Natural Resource Specialist) (0:43 EHassan R.N.) TSH Urgent (22:37 06/23/2016 Fareed Downing) (Ack 22:39 CHagerty ER Natural Resource Specialist) (23:10 EHassan R.N.) D-Dimer Urgent (00:43 06/24/2016 Fareed Downing) (0:47 Lynsey R.N.) MEDICATION ORDERS: IV FLUIDS: IV Saline Lock (21:58 06/23/2016 Fareed Downing) (22:49 Blake Oviedo.NRae) Toradol IV 30 mg (NOW) (23:52 06/23/2016 Fareed Downing) (0:09 Lynsey R.N.) Morphine IV 4 mg (HIGH ALERT MEDICATION, NOW) (00:46 06/24/2016 Fareed Downing) (0:51 Lynsey R.N.) ORDER SHEET NOTES: [Electronically signed by Sesar Chowdhury R.N. (02:56 06/24/2016)] [Electronically signed by Mati Garrison Dr. (12:11 06/27/2016)] [Electronically locked/signed by Sesar Chowdhury R.N. (02:56 06/24/2016)]
--- NOTE | 2016-06-24 02:25 | ED ORDER SUMMARY ---
..... Patient: ROXY JEONG OrderSheet [facility] VisitID: [id number] [place] [address] 50y, F Registration Date/Time: 06/23/2016 ORDER SHEET Weight: 76.2 kg (stated) Allergies: Penicillin, Dilaudid, Effexor, Benadryl, Tetracycline GENERAL ORDERS: EKG - ER Stat (21:49 06/23/2016 ASchmuck per protocol) (Ack 22:01 Gevoerty ER Dispatcher Chief Oil) (22:12 Keturahekimana) Chest 2V Urgent (21:57 06/23/2016 Fareed Downing) (Ack 22:00 Gevoerty ER Dispatcher Chief Oil) (22:55 MCamaryuri) Fine Arts Instructor (Continuous) (CP) (21:58 06/23/2016 Fareed Downing) (22:06 ASchmmoose) CMP Urgent (21:58 06/23/2016 Fareed Downing) (Ack 22:00 Gevoerty ER Dispatcher Chief Oil) (23:10 EHassan R.N.) CBC w Diff Urgent (21:58 06/23/2016 Fareed Downing) (Ack 22:00 Gevoerty ER Dispatcher Chief Oil) (23:10 EHassan R.N.) Urine Urgent (21:58 06/23/2016 Fareed Downing) (Ack 22:00 Gevoerty ER Dispatcher Chief Oil) (0:43 EHassan R.N.) Pulse oximeter (21:58 06/23/2016 Fareed Downing) (22:06 ASchmuck) Troponin-I Urgent (21:58 06/23/2016 Fareed oDwning) (Ack 22:00 Gevoerty ER Dispatcher Chief Oil) (23:10 EHassan R.N.) Urine Drug Screen Urgent (21:58 06/23/2016 Fareed Downing) (Ack 22:00 Gevoerty ER Dispatcher Chief Oil) (0:43 EHassan R.N.) TSH Urgent (22:37 06/23/2016 Fareed Downing) (Ack 22:39 CHagerty ER Dispatcher Chief Oil) (23:10 EHassan R.N.) D-Dimer Urgent (00:43 06/24/2016 Fareed Downing) (0:47 Lynsey R.N.) MEDICATION ORDERS: IV FLUIDS: IV Saline Lock (21:58 06/23/2016 Fareed Downing) (22:49 Blake Oviedo.NRae) Toradol IV 30 mg (NOW) (23:52 06/23/2016 Fareed Downing) (0:09 Lynsey R.N.) Morphine IV 4 mg (HIGH ALERT MEDICATION, NOW) (00:46 06/24/2016 Fareed Downing) (0:51 Lynsey R.N.) ORDER SHEET NOTES: [Electronically signed by Sesar Chowdhury R.N. (02:56 06/24/2016)] [Electronically signed by Mati Garrison Dr. (12:11 06/27/2016)] [Electronically locked/signed by Sesar Chowdhury R.N. (02:56 06/24/2016)]
--- NOTE | 2016-06-27 12:12 | ED MED RECONCILIATION SUMMARY ---
Patient: ROXY JEONG Medication Reconciliation Report [facility] VisitID: [id number] [address] [place] [address] 50y, F Registration Date/Time: 06/23/2016 Weight: 76.2 kg Height/Length: 66 in. BMI: 27.1 ALLERGIES: Benadryl, Dilaudid, Effexor, Penicillin, Tetracycline The patient's Home Medications are listed below: CONTINUE TAKING THE FOLLOWING MEDICATIONS: Ambien Oral 10 mg LORazepam Oral 1.5 mg, daily Methocarbamol Oral NexIUM Oral 80 mg, daily Ranitidine HCl Oral, at bedtime Tessalon Perles Oral TraZODone HCl Oral 350 mg, at bedtime Tussionex Oral The source(s) of the original Home Medication information: patient The following Medications were given to the patient in the Emergency Department: Toradol [IVP] IVP 30 mg, administered: 06/24/2016 12:09:00 AM Morphine [IVP] IVP 4 mg, administered: 06/24/2016 12:50:00 AM The following Medications were prescribed to the patient: None.
--- NOTE | 2016-06-27 12:12 | ED MED RECONCILIATION SUMMARY ---
Patient: ROXY JEONG Medication Reconciliation Report [facility] VisitID: [id number] [address] [place] [address] 50y, F Registration Date/Time: 06/23/2016 Weight: 76.2 kg Height/Length: 66 in. BMI: 27.1 ALLERGIES: Benadryl, Dilaudid, Effexor, Penicillin, Tetracycline The patient's Home Medications are listed below: CONTINUE TAKING THE FOLLOWING MEDICATIONS: Ambien Oral 10 mg LORazepam Oral 1.5 mg, daily Methocarbamol Oral NexIUM Oral 80 mg, daily Ranitidine HCl Oral, at bedtime Tessalon Perles Oral TraZODone HCl Oral 350 mg, at bedtime Tussionex Oral The source(s) of the original Home Medication information: patient The following Medications were given to the patient in the Emergency Department: Toradol [IVP] IVP 30 mg, administered: 06/24/2016 12:09:00 AM Morphine [IVP] IVP 4 mg, administered: 06/24/2016 12:50:00 AM The following Medications were prescribed to the patient: None.
--- NOTE | 2016-06-27 12:12 | ED MAR SUMMARY ---
..... Medication Administration Record [facility] [address] [place] [address] Patient: ROXY JEONG Visit ID: [id number] 50y, F Weight: 76.2 kg Height/Length: 66 in BMI: 27.1 ALLERGIES: Benadryl, Effexor, Dilaudid, Penicillin, Tetracycline Given 00:09 06/24/2016 Kia Carpenter RRaeN. Medication Administered: TORADOL [IVP], Dose: 30 mg IVP over 30 second(s), Site: #1 right upper arm. Medication Ordered: Toradol IV 30 mg (NOW). Given 00:50 06/24/2016 Kia Carpenter, R.N. Medication Administered: MORPHINE [IVP], Dose: 4 mg IVP over 1 minute(s), Site: #1 right upper arm. Medication Ordered: Morphine IV 4 mg (HIGH ALERT MEDICATION, NOW).
--- NOTE | 2016-06-27 12:12 | ED MAR SUMMARY ---
..... Medication Administration Record [facility] [address] [place] [address] Patient: ROXY JEONG Visit ID: [id number] 50y, F Weight: 76.2 kg Height/Length: 66 in BMI: 27.1 ALLERGIES: Benadryl, Effexor, Dilaudid, Penicillin, Tetracycline Given 00:09 06/24/2016 Kia Carpenter RRaeN. Medication Administered: TORADOL [IVP], Dose: 30 mg IVP over 30 second(s), Site: #1 right upper arm. Medication Ordered: Toradol IV 30 mg (NOW). Given 00:50 06/24/2016 Kia Carpenter, R.N. Medication Administered: MORPHINE [IVP], Dose: 4 mg IVP over 1 minute(s), Site: #1 right upper arm. Medication Ordered: Morphine IV 4 mg (HIGH ALERT MEDICATION, NOW).
--- NOTE | 2016-06-27 12:12 | ED DISCHARGE INSTRUCTIONS ---
Patient: ROXY JEONG General Instructions [facility] VisitID: [id number] [place] [address] 50y, F Registration Date/Time: 06/23/2016 06/24/2016 00:00 BP: 104/66. HR: 83. RR: 12. O2 saturation: 97%. Pain level now: 9/10. Chronic cough Blood pressure normal. Oxygen saturation normal. Atypical chest pain .12 lead EKG performed. (acute bilateral). INSTRUCTIONS Warnings: GENERAL WARNINGS: Return or contact your physician immediately if your condition worsens or changes unexpectedly, if not improving as expected, or if other problems arise. SPECIFICALLY, return if you develop chest, neck, jaw, shoulder, arm, or back pain, difficulty breathing, a fluttering sensation in your chest, lightheadedness, fainting, excessive fatigue, or sudden sweating. Your Current Medications: CONTINUE TAKING THE FOLLOWING MEDICATIONS: Ambien Oral : 10 mg, prn. LORazepam Oral : 1.5 mg daily. Methocarbamol Oral. NexIUM Oral : 80 mg daily. Ranitidine HCl Oral : at bedtime. Tessalon Perles Oral. TraZODone HCl Oral : 350 mg at bedtime. Tussionex Oral. Follow-up: Return to the emergency department as needed. Follow up with your doctor in three days. Reason for referral: recheck today's concerns. Summary of care provided to patient via paper. Follow up with doctor Your milieu counselor or covering doctor in three days. Reason for referral: recheck today's concerns . Summary of care provided to patient via paper. Screening today revealed the patient's blood pressure to be in the normal range. The patient should follow up with a primary care provider for blood pressure management. Understanding of the discharge instructions verbalized by patient. ADDITIONAL INFORMATION Chest Pain, Uncertain Cause Chest pain can happen for a number of reasons. Sometimes the cause can not be determined. If yourcondition does not seem serious, and your pain does not appear to be coming from your heart, your doctor may recommend watching it closely. Sometimes the signs of a serious problem take more time to appear. Therefore, watch for the warning signs listed below. Home care After your visit, follow these recommendations: Rest today and avoid strenuous activity. Take any prescribed medicine as directed. Follow-up care Follow up with your doctor or this facility as instructed or if you do not start to feel better within 24 hours. Call 911 Get immediate medical attention if any of the following occur: A change in the type of pain: if it feels different, becomes more severe, lasts longer, or begins to spread into your shoulder, arm, neck, jaw or back Shortness of breath or increased pain with breathing Weakness, dizziness, or fainting Rapid heart beat Get prompt medical attention Call your doctor right away if any of the following occur: Cough with dark colored sputum (phlegm) or blood Fever of 100.4F(38C) or higher, or as directed by your health care provider Swelling, pain or redness in one leg Cough, Chronic, Uncertain Cause(Adult) Everyone has had a cough as part of the common cold, flu or bronchitis. This kind of cough occurs along with an achy feeling, low grade fever, nasal and sinus congestion, scratchy or sore throat. This gets better in two to three weeks. A cough that lasts longer than three weeks may is usually due to other causes. Based on your exam today, the exact cause of your cough is not certain. Below are some of the common causes for persistent cough. If the cough does not improve over the next two weeks, further testing may be needed. Follow up with your doctor as directed. Smokers Cough worse. The cough is from irritation in the air passages. Talk to your doctor about quitting. Nicotine patches, gum, inhaler, nasal spray or another method may make it easier. Post-Nasal Drip A cough that is worse at night may be due to postnasal drip. Excess mucus in the nose drains from the back of your nose to your throat and triggers the cough reflex. This may be due to a sinus infection or allergy. Common allergens include: dust, smoke, pollen mold, pets, cleaning agents, room deodorizers and chemical fumes. Over the counter antihistamines/decongestant may be helpful for allergies. A sinus infection requires antibiotic treatment. See your doctor if symptoms continue. Medicines Certain prescribed medicines can cause a chronic cough in some people: ALISHA inhibitors for high blood pressure. These include Lotensin (benazepril), Capoten (captopril), Vasotec (enalapril), Monopril (fosinopril), Prinivil and Zestril (lisinopril), Accupril (quinapril), Altace (ramipril), and others. Beta-blockers for high blood pressure and other conditions. These include Inderal (propranolol), Tenormin (atenolol), Lopressor (metoprolol), Corgard (nadolol), and others. Let your doctor know if you are taking any of these. Asthma Cough may be the only sign of mild asthma. Your doctor can do lung testing to find out if this is the cause. Your response to a trial of asthma medicines may also help make the diagnosis. Acid Reflux (Heartburn) The esophagus is a tube that carries food from the mouth to the stomach.A valve at its lower endprevents stomach acids from flowing upward. If this valve does not work properly, acid from the stomach enters the esophagus. This may cause a burning pain in the upper abdomen or lower chest, belching, or cough. Symptoms are often worse when lying flat. Avoid eating or drinking before bedtime. Try using extra pillows to raise your upper body or place 4-inch blocks under the head of your bed. You may try an [id number] antacid (Tums or Mylanta) or an acid-blocking medicine (Pepcid AC, Tagamet HB, Zantac 75, or Prilosec OTC). Stronger medicines for this condition can be prescribed by your doctor. Follow Up with your doctor as directed if your cough does not improve over the next2 weeks. Further testing may be needed. [NOTE: If an x-ray was made, another specialist will review it. You will be notified of any new findings that may affect your care.] Get Prompt Medical Attention if any of the following occur: Wheezing or difficulty breathing Fever of 100.4F (38C) or higher, or as directed by your healthcare provider Unexpected weight loss Coughing up large amounts of colored sputum Coughing up blood Night sweats (sheets and pajamas get soaking wet) You have been given the following additional information: Chest Pain, Uncertain Cause Cough, Chronic, Uncertain Cause, (Adult) (Electronically signed by Mati Garrison Dr. 06/27/2016 12:11)
== END 2016-06-24 02:26 | disposition home or self-care (01) ==
LOC: ED SRH 21:35
DX: R07.89 Other chest pain (principal); R05 Cough; Z88.0 Allergy status to penicillin; Z88.5 Allergy status to narcotic agent; Z88.1 Allergy status to other antibiotic agents; Z88.8 Allergy status to other drugs, medicaments and biological substances
CPT/HCPCS: 90074; 90100; 90616; 91556; 92760; 92761; 92762; 92763; 92764; 92765; 92766; 92767; 93070; 93140; 95059